=== PATIENT | male | born 1985 | race Caucasian/White ===

== ENCOUNTER 2018-06-30 05:43 | Emergency (ER) | payer OTHER, BC ==
[2018-06-30] MEDS ORDERED: IBUPROFEN 800 MG TABLET PO ONE (05:55)
--- NOTE | 2018-06-30 06:38 | ER Document Report ---
ED Extremity Problem, Lower - General Chief Complaint: Ankle Injury Stated Complaint: RIGHT ANKLE INJURY Time Seen by Provider: 06/30/18 06:15 Mode of Arrival: Ambulatory Information source: Patient Notes: 32-year-old male presents emergency department with complaints of right ankle pain and swelling. Patient states that he was walking when rolled his ankle. Patient states that he inverted the ankle. He states that he is able to ambulate but is having some pain. Denies numbness, tingling. TRAVEL OUTSIDE OF THE [place] IN LAST 30 DAYS: No - HPI Patient complains to provider of: Pain, Swelling Location: Ankle Occurred: Just prior to arrival Where: Work Onset/Duration: Sudden Quality of pain: Dull Severity: Mild Context: Twisted Exacerbated by: Movement Relieved by: Rest - Related Data Allergies/Adverse Reactions: No Known Allergies Allergy (Verified 06/30/18 06:09) Past Medical History - General Information source: Patient - Social History Smoking Status: Never Smoker Family History: Reviewed & Not Pertinent Patient has suicidal ideation: No Patient has homicidal ideation: No Renal/ Medical History: Denies: Hx Peritoneal Dialysis Review of Systems - Review of Systems Constitutional: No symptoms reported EENT: No symptoms reported Cardiovascular: No symptoms reported Respiratory: No symptoms reported Gastrointestinal: No symptoms reported Genitourinary: No symptoms reported Male Genitourinary: No symptoms reported Musculoskeletal: Joint pain, Ankle swelling Skin: No symptoms reported Hematologic/Lymphatic: No symptoms reported Neurological/Psychological: No symptoms reported -: Yes All other systems reviewed and negative Physical Exam - Notes Notes: PHYSICAL EXAMINATION: GENERAL: Well-appearing, well-nourished and in no acute distress. HEAD: Atraumatic, normocephalic. EYES: Pupils equal round and reactive to light, extraocular movements intact, sclera anicteric, conjunctiva are normal. ENT: Nares patent, oropharynx clear without exudates. Moist mucous membranes. NECK: Normal range of motion, supple without lymphadenopathy LUNGS: Breath sounds clear to auscultation bilaterally and equal. No wheezes rales or rhonchi. HEART: Regular rate and rhythm without murmurs ABDOMEN: Soft, nontender, nondistended abdomen. No guarding, no rebound. No masses appreciated. Musculoskeletal: Normal range of motion, no pitting or edema. No cyanosis. 2+ DP/PT pulse on the right foot. Pain with flexion of the ankle. Tendernss to palpation to the lateral foot. No pain with palpation of the ankle. No sensory changes. NEUROLOGICAL: Cranial nerves grossly intact. Normal speech, normal gait. Normal sensory, motor exams PSYCH: Normal mood, normal affect. SKIN: Warm, Dry, normal turgor, no rashes or lesions noted. Course - Re-evaluation Re-evalutation: 06/30/18 08:05 X-rays obtained and are only remarkable for some swelling. No acute fracture. Discharge - Discharge Clinical Impression: Sprained ankle Qualifiers: Encounter type: initial encounter Involved ligament of ankle: unspecified ligament Laterality: right Qualified Code(s): S93.401A - Sprain of unspecified ligament of right ankle, initial encounter Condition: Good Disposition: HOME, SELF-CARE Instructions: [facility] & Elevation ([facility]), Sprained Ankle ([facility]) Referrals: PATRICIA BONILLA MD [ACTIVE STAFF] - Follow up as needed
--- NOTE | 2018-06-30 07:18 | RADIOLOGY REPORT (SQ) ---
EXAM DESCRIPTION: XR ANKLE 3 OR MORE VIEWS COMPLETED DATE/TME: 06/30/2018 05:54 CLINICAL HISTORY: 32 years Male, pain COMPARISON: None. Findings: Mild diffuse ankle swelling. Punctate nonspecific T2 abdominal calcification dorsal to the right navicular. Small osteophyte of the medial malleolus. Bones, joints, and soft tissues of the RIGHT XR ANKLE 3 OR MORE VIEWS appear otherwise unremarkable. IMPRESSION: Moderate ankle swelling.
--- NOTE | 2018-06-30 07:40 | RADIOLOGY REPORT (SQ) ---
EXAM DESCRIPTION: XR FOOT 3 OR MORE VIEWS COMPLETED DATE/TME: 06/30/2018 06:53 CLINICAL HISTORY: 32 years Male, foot pain COMPARISON: None. Findings: Punctate likely developmental calcification dorsal to the navicular. Mild diffuse swelling. Small right medial malleolar osteophyte.. Bones, joints, and soft tissues of the RIGHT XR FOOT 3 VIEWS appear otherwise intact. IMPRESSION: No acute findings.
[2018-06-30 08:15] VITALS: BP 126/73
== END 2018-06-30 08:15 | disposition home or self-care (01) ==
LOC: ER 05:43
DX: S93.401A Sprain of unspecified ligament of right ankle, initial encounter (principal); M25.571 Pain in right ankle and joints of right foot; M79.89 Other specified soft tissue disorders; X58.XXXA Exposure to other specified factors, initial encounter
CPT/HCPCS: 99283